=== PATIENT | male | born 1950 | race Caucasian/White ===

== ENCOUNTER 2020-09-17 19:04 | Emergency (ER) | payer OTHER, SELFPAY ==
[2020-09-17 19:07] VITALS: PULSE 60; RESP 12; TEMP 36.8; O2SAT 98; BMI 34.5
--- NOTE | 2020-09-17 19:08 | ED_ITS ---
HPI - Fall General Chief Complaint: Fall Stated Complaint: Abrasions with fall Time Seen by Provider: 09/17/20 19:06 Source: patient and EMS Mode of arrival: EMS History of Present Illness HPI Narrative: Patient is a 69-year-old male who [place] [facility] [place]. He walks with a cane is and is slightly unsteady baseline. [place] he stood up on a little uneven ground and essentially fell forward hitting left side of his head. He has a small abrasion. He did have a loss of consciousness witnessed by pain and bystander which included a nurse for approximately 2 minutes. He is now complaining of headache but no nausea or vomiting or weakness. He is not on any anti-platelet or anticoagulation medication. He is currently in a C-collar it was complaining of some C-spine tenderness initially but not now. MD complaint: fall Place fall occurred: other ([place]) Loss of consciousness: yes Length of LOC: minutes(s) (2) Prolonged down time: no Symptoms prior to fall: none Context: tripped/slipped Related Data Allergies Allergy/AdvReac Type Severity Reaction Status Date / Time quinine Allergy Verified 09/17/20 19:12 Review of Systems Review of Systems Narrative: GENERAL: Denies chills, fatigue, malaise, fever, sweats, travel HEENT: Denies sinus pain, ear pain, sore throat, difficulty swallowing, neck pain RESPIRATORY: Denies dyspnea, cough, wheezing, hemoptysis, sputum. CARDIOVASCULAR: Denies chest pain, palpitations, orthopnea, edema GASTROINTESTINAL: Denies nausea, vomiting, abdominal pain, diarrhea, constipation, melena. : Denies dysuria, frequency, incontinence, hematuria, urinary retention, flank pain. MUSCULOSKELETAL: Denies weakness, joint pain, or bony pain SKIN: No rash, no erythema, no pruritus NEUROLOGIC: + headache, LOC 2 minutes, see HPI PSYCHIATRIC: No concerning psychosocial issues. 12 point review of systems is negative except for those stated above and HPI Patient History Social History Smoking Status: Never smoker Exam Initial Vital Signs Initial Vital Signs: Vital Signs Temperature 98.2 F 09/17/20 19:07 Pulse Rate 60 09/17/20 19:07 Respiratory Rate 12 09/17/20 19:07 Pulse Oximetry 98 09/17/20 19:07 GENERAL: Alert 69-year-old male and in no acute distress. HEENT: Head abrasion noted left side,EOMI, pupils reactive, face symmetric, moist mucous membranes NECK C-collar in place CARDIOVASCULAR: Regular rate and rhythm without murmurs, rubs or gallops. RESPIRATORY: Breath sounds equal bilaterally, no wheezes rales or rhonchi. ABDOMEN: Soft, nontender. Normoactive bowel sounds all 4 quadrants. No guarding or rebound. EXTREMITIES: Normal range of motion, no clubbing or edema. Neurovascularly intact Pelvis stable. Left lower extremity able to flex and extend knee NEUROLOGICAL: Alert and oriented x4.Normal gait and speech. Cranial nerves II through XII grossly intact. 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 lower extremity strength equal SKIN: Abrasions noted left side of head along with abrasion on left knee Scores GCS Krystle coma scale eye opening: Spontaneous Krystle coma scale verbal response: Orientated [place] coma scale motor response: Obey commands Krystle coma scale total score: 15 Course Orders Ordered: ED Orders 09/17/20 19:06 CT cervical spine wo con Stat CT head/brain wo con Stat 09/17/20 19:35 XR knee LT 1to2V Stat Discontinued Medications Acetaminophen (Acetaminophen 325 Mg Tablet) 975 mg PO NOW ONE Stop: 09/17/20 19:36 Last Admin: 09/17/20 19:41 Dose: 975 mg Documented by: KGALLAG Bacitracin (Bacitracin Oint 0.9 Gm Pckt) 2 applic TOP NOW ONE Stop: 09/17/20 21:06 Last Admin: 09/17/20 21:30 Dose: 2 applic Documented by: [email or web address] Vital Signs Vital signs: Vital Signs - 8 hr 09/17/20 19:07 09/17/20 20:40 09/17/20 21:00 Temperature 98.2 F Pulse Rate 60 61 66 Respiratory Rate 12 17 16 Pulse Oximetry 98 96 96 MDM - Fall Imaging Data CT scan - head: Radiologist's Impression: PROCEDURE: CT HEAD/BRAIN WO CON INDICATIONS: fall TECHNIQUE: Noncontrast 4.5 mm thick angled axial sections acquired from the foramen magnum to the vertex, with coronal and sagittal reformats. For radiation dose reduction, the following was used: automated exposure control, adjustment of mA and/or kV according to patient size. COMPARISON: None. FINDINGS: Image quality: Excellent. CSF spaces: Basal cisterns are patent. No extra-axial fluid collections. Ventricles are normal in size and shape. Brain: No midline shift. No intracranial masses or hemorrhage. Right frontal lobe encephalomalacia, (2/20). Periventricular hypodensity consistent with chronic microvascular ischemic disease. Skull and face: Calvarium and visualized facial bones are intact, without suspicious lesions. Sinuses: Mucous retention cyst in the right maxillary sinus versus mucosal thickening. Visualized sinuses and mastoids are otherwise clear. IMPRESSION: No acute intracranial abnormality. No acute intracranial hemorrhage. 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 Chronic microvascular ischemic disease. Dictated by: Gil Blancas M.D. on 09/17/2020 at 20:09 Approved by: Gil Blancas M.D. on 09/17/2020 at 20:12 CT - cervical spine: Radiologist's Impression: PROCEDURE: CT CERVICAL SPINE WO CON INDICATIONS: fall TECHNIQUE: Noncontrast 3 mm thick sections acquired from the skull base to the T4 level. Sagittal and coronal reformats were then constructed. For radiation dose reduction, the following was used: automated exposure control, adjustment of mA and/or kV according to patient size. COMPARISON: [facility], CT, CT HEAD/BRAIN WO CON, 09/17/2020, 19:12. FINDINGS: Image quality: Excellent. Bones: No fractures or dislocations. Visualized superior ribs are intact. Moderate degenerative change. Soft tissues: Prevertebral soft tissues are normal in thickness. No paravertebral hematomas. No apical pneumothoraces. Left pacemaker. IMPRESSION: No acute osseous abnormality. Dictated by: Gil Blancas M.D. on 09/17/2020 at 20:52 Extremity x-ray #1: Radiologist's Impression: PROCEDURE: XR KNEE LT 1TO2V INDICATIONS: knee pain fall TECHNIQUE: 3 views of the knee were acquired. COMPARISON: None. FINDINGS: Bones: No fractures or dislocations. No suspicious bony lesions. Mild tricompartmental osteophytosis. Soft tissues: No significant joint effusion. No suspicious soft tissue calcifications. IMPRESSION: No acute osseous abnormality. Dictated by: Gil Blancas M.D. on 09/17/2020 at 20:12 [facility] Narrative Medical decision making narrative: Patient had mechanical fall with small superficial abrasion to the head. CTs are negative. Discharge Plan Departure Patient Disposition: Home Clinical Impression: Closed head injury Qualifiers: Encounter type: initial encounter Qualified Code(s): S09.90XA - Unspecified injury of head, initial encounter Instructions: How to Prevent Falls Activity Restrictions/Additional Instructions: *You have been diagnosed with closed head injury *What to do: at this time and CT scan are overall reassuring. *Continue to take medications as directed Tylenol 650 mg every 4-6 hours if needed for [id number] pain *Follow up with your primary care provider in 2-3 days *Return to ER if you should have persistent vomiting, confusion, weakness or any new, worsening or concerning symptoms
--- NOTE | 2020-09-17 19:35 | DI.RAD.S_ITS ---
PROCEDURE: XR KNEE LT 1TO2V INDICATIONS: knee pain fall TECHNIQUE: 3 views of the knee were acquired. COMPARISON: None. FINDINGS: Bones: No fractures or dislocations. No suspicious bony lesions. Mild tricompartmental osteophytosis. Soft tissues: No significant joint effusion. No suspicious soft tissue calcifications. IMPRESSION: No acute osseous abnormality. Dictated by: Gil Blancas M.D. on 09/17/2020 at 20:12 Approved by: Gil Blancas M.D. on 09/17/2020 at 20:13
[2020-09-17] MEDS: ACETAMINOPHEN 325 MG TABLET 975 MG PO (19:41)
[2020-09-17 20:40] VITALS: PULSE 61; RESP 17; O2SAT 96
[2020-09-17 21:00] VITALS: PULSE 66; RESP 16; O2SAT 96
[2020-09-17] MEDS: BACITRACIN OINT 0.9 GM PCKT 2 APPLIC TOP (21:30)
== END 2020-09-17 21:36 | disposition home or self-care (01) ==
PROVIDERS: Emergency Provider Emergency Medicine
DX: S09.90XA Unspecified injury of head, initial encounter (principal); M25.562 Pain in left knee; W19.XXXA Unspecified fall, initial encounter
CPT/HCPCS: 36415; 70450; 72125; 73560; 99284